=== PATIENT | male | born 1950 | race Caucasian/White ===

== ENCOUNTER 2017-03-17 03:46 | Emergency (ER) | payer MEDICARE, BC ==
[~2017-03-17] VITALS: Ht 182.9 cm; Wt 86.4 kg
[2017-03-17 03:54] VITALS: TEMP 98.2
[2017-03-17] MEDS ORDERED: LIPITOR 40MG TA40 MG PO (03:56)
[2017-03-17] MEDS ORDERED: CEPHALEXIN500 M1 PO (06:12)
[2017-03-17] MEDS ORDERED: DOXYCYCLINE 10100 MG PO (06:12)
[2017-03-17 06:19] VITALS: BP 150/80; PULSE 76
== END 2017-03-17 06:24 | disposition home or self-care (01) ==
LOC: COL.ER 03:46
DX: L03.213 Periorbital cellulitis (principal); H00.031 Abscess of right upper eyelid; B95.7 Other staphylococcus as the cause of diseases classified elsewhere; E78.00 Pure hypercholesterolemia, unspecified

== ENCOUNTER → 2019-10-29 | Outpatient (CLI) | payer MEDICARE, BC ==
[~2019-10-29] MED LIST: CEPHALEXIN500 M1 PO; DOXYCYCLINE 10100 MG PO; LIPITOR 40MG TA40 MG PO
== END ==
LOC: COL.PUL 07:21
DX: E10.9 Type 1 diabetes mellitus without complications (principal); R05 Cough

== ENCOUNTER → 2020-01-17 | Outpatient (CLI) | payer MEDICARE, BC | LOC: COL.PUL 12:48 | DX: R05 Cough (principal) ==

== ENCOUNTER → 2020-01-28 | Outpatient (CLI) | payer MEDICARE, BC | LOC: COL.PUL | DX: R05 Cough (principal) | CPT/HCPCS: J7674 ==